=== PATIENT | female | born 1990 | race Two or more races ===

== ENCOUNTER 2020-06-16 10:48 | Emergency (ER) | payer SELFPAY ==
[~2020-06-16] VITALS: Ht 170.2 cm; Wt 113.4 kg
--- NOTE | 2020-06-16 11:15 | NUR ---
Dr White at bedside for MSE.
[2020-06-16] MEDS ORDERED: ONDANSETRON ODT 4 MG TAB.RAPDIS ONE (11:29)
[2020-06-16] MEDS ORDERED: ONDANSETRON ODT 4 MG TAB.RAPDIS SL ONE (11:30)
[2020-06-16] MEDS ORDERED: LOPERAMIDE HCL 2 MG CAPSULE PO ONE (11:30)
[2020-06-16 11:42] LABS: BASOPHILS # (AUTO) 0.1 K/uL (0.0-8.0); BASOPHILS % (AUTO) 0.8 % (0.0-2.0); EOSINOPHILS # (AUTO) 0.3 K/uL (0.0-0.7); EOSINOPHILS % (AUTO) 2.3 % (0.0-7.0); HEMATOCRIT 41.9 % (31.2-41.9); HEMOGLOBIN 13.6 g/dL (10.9-14.3); LYMPHOCYTES % (AUTO) 25.3 % (20.5-51.5); MEAN CORPUSCULAR HEMOGLOBIN 28.2 uug (24.7-32.8); MEAN CORPUSCULAR HGB CONC 33 g/dL (32.3-35.6); MEAN CORPUSCULAR VOLUME 86.5 fL (75.5-95.3); MONOCYTES # (AUTO) 0.9 K/uL (2.0-10.0); MONOCYTES % (AUTO) 7.3 % (0.0-11.0); NEUTROPHILS # (AUTO) 7.6 K/uL (1.8-8.9); NEUTROPHILS % (AUTO) 64.3 % (38.5-71.5); PLATELET COUNT (AUTO) 446 K/uL (179-408); RED BLOOD CELL COUNT(AUTO) 4.84 MIL/uL (3.63-4.92); WHITE BLOOD COUNT (AUTO) 11.9 K/uL (3.8-11.8)
[2020-06-16 11:53] LABS: CREATININE 0.6 mg/dL (0.6-1.3); POTASSIUM 3.9 mmol/L (3.5-5.1)
[2020-06-16 11:54] LABS: *BILIRUBIN,URIN NEGATIVE (NEGATIVE); *BLOOD, URINE 2+ (NEGATIVE); *CLARITY,URINE CLEAR (CLEAR); *COLOR,URINE YELLOW (YELLOW); *KETONES,URINE NEGATIVE (NEGATIVE); *UROBILINOGEN,URINE 0.2 E.U./dl (NORMAL); LEUKOCYTE ESTERASE ,URINE NEGATIVE (NEGATIVE); NITRITE, URINE NEGATIVE (NEGATIVE); UGLUCOSE NEGATIVE (NEGATIVE)
[2020-06-16 11:59] LABS: BILIRUBIN,DIRECT 0.1 mg/dL (0.0-0.2); BILIRUBIN,TOTAL 0.3 mg/dL (0.2-1.0); TOTAL PROTEIN, SERUM 7.9 g/dL (6.4-8.2)
[2020-06-16 12:10] LABS: *URINE HCG, QUAL NEG (NEGATIVE)
--- NOTE | 2020-06-16 12:19 | NUR ---
Nasal swab for COVID collected and sent to LAB.
[2020-06-16] MEDS ORDERED: AZIT250T13 PO (13:06)
[2020-06-16] MEDS ORDERED: LOPE-195 PO (13:06)
[2020-06-16] MEDS ORDERED: ONDA4TAB11 PO (13:06)
--- NOTE | 2020-06-16 13:28 | NUR ---
Patient has been cleared for DC by ERMD. No further episodes of diarrhea/nausea during stay in ER. Written and verbal after care instructions given. Patient verbalizes understanding of instructions. Stressed follow up with PCP or return to ER for worsening s/s. Ambulated out of ED in steady gait and stable condition.
[2020-06-16 13:30] VITALS: BP 130/78
[2020-06-16 16:13] LABS: BACTERIA,URINE NONE SEEN /HPF (NONE SEEN); SQUAMOUS EPITHELIAL CELL,UR FEW /HPF (NONE SEEN); WBC,URINE 0-3 /HPF (0-3)
== END 2020-06-16 13:31 | disposition home or self-care (01) ==
LOC: ER 10:48
DX: J02.9 Acute pharyngitis, unspecified (principal); R11.0 Nausea; F31.9 Bipolar disorder, unspecified; R19.7 Diarrhea, unspecified; Z20.822 Contact with and (suspected) exposure to COVID-19
CPT/HCPCS: 36415; 83690; 84703; 85025; A4663; Q0162